=== PATIENT | male | born 1995 | race African-American/Black ===

== ENCOUNTER 2017-02-22 16:50 | Emergency (ER) | payer MEDICAID ==
[~2017-02-22] VITALS: Ht 170.2 cm; Wt 60.0 kg
[2017-02-22] MEDS ORDERED: AMOXICILLIN/POTASSIUM CLAVULANATE 875/125MG TAB PO ONE (18:45)
[2017-02-22] MEDS ORDERED: IBUPROFEN 600MG TABLET PO ONE (18:45)
[2017-02-22 19:07] VITALS: BP 127/63
== END 2017-02-22 19:33 | disposition home or self-care (01) ==
LOC: ER 18:33
DX: R51 Headache (principal); J32.8 Other chronic sinusitis
CPT/HCPCS: 99283

== ENCOUNTER 2019-05-28 10:26 | Emergency (ER) | payer MEDICAID, OTHER ==
[~2019-05-28] VITALS: Ht 172.7 cm; Wt 57.0 kg
[2019-05-28] MEDS ORDERED: ACETAMINOPHEN 650MG/20.3ML UDC PO ONE (11:15)
[2019-05-28 11:29] VITALS: BP 110/62
== END 2019-05-28 11:24 | disposition home or self-care (01) ==
LOC: ER 11:11
DX: J01.90 Acute sinusitis, unspecified (principal); J30.89 Other allergic rhinitis; F12.10 Cannabis abuse, uncomplicated; F17.210 Nicotine dependence, cigarettes, uncomplicated; Z71.6 Tobacco abuse counseling
CPT/HCPCS: 99282; 99406

== ENCOUNTER 2019-11-14 20:58 | Emergency (ER) | payer OTHER ==
[~2019-11-14] VITALS: Ht 172.7 cm; Wt 62.0 kg
[2019-11-14] MEDS ORDERED: IBUPROFEN 600MG TABLET PO ONE (23:00)
[2019-11-15 00:09] VITALS: BP 129/76
== END 2019-11-15 00:10 | disposition home or self-care (01) ==
LOC: ER 20:58
DX: M79.645 Pain in left finger(s) (principal); F12.10 Cannabis abuse, uncomplicated
CPT/HCPCS: 73130; 99283

== ENCOUNTER 2020-04-13 16:53 | Emergency (ER) | payer OTHER ==
[~2020-04-13] VITALS: Ht 172.7 cm; Wt 59.0 kg
[2020-04-13 17:13] VITALS: BP 116/67
== END 2020-04-13 18:25 | disposition home or self-care (01) ==
LOC: ER 16:53
DX: R07.89 Other chest pain (principal); F12.10 Cannabis abuse, uncomplicated; Z98.890 Other specified postprocedural states
CPT/HCPCS: 71046; 93005; 99283

== ENCOUNTER 2022-04-30 09:12 | Emergency (ER) | payer MEDICAID, OTHER ==
[~2022-04-30] VITALS: Ht 175.3 cm; Wt 60.0 kg
[2022-04-30 09:18] VITALS: BP 127/79
[2022-04-30] MEDS ORDERED: PSEU-224 MT (09:57)
== END 2022-04-30 11:10 | disposition home or self-care (01) ==
LOC: ER 09:12
DX: J01.90 Acute sinusitis, unspecified (principal); F12.10 Cannabis abuse, uncomplicated
CPT/HCPCS: 99282

== ENCOUNTER 2023-11-28 20:09 | Emergency (ER) | payer OTHER ==
[~2023-11-28] VITALS: Ht 172.7 cm; Wt 62.0 kg
[~2023-11-28 20:09] MED LIST: PSEU-224 MT
[2023-11-28 20:33] VITALS: O2SAT 100
[2023-11-28 20:59] LABS: BASOPHILS % 1.3 % (0.0-2.0); EOSINOPHILS % 8.6 % (0.0-5.0); HEMOGLOBIN. 13.9 g/dL (14.0-18.0); LYMPHOCYTES % 33.3 % (20.0-50.0); MEAN CORPUSCULAR HGB CONC 33.1 g/dL (31.0-37.0); MEAN CORPUSCULAR VOLUME 84.8 fL (80.0-94.0); MEAN PLATELET VOLUME 9.1 fl (7.4-10.4); MONOCYTES % 9.2 % (2.0-8.0); NEUTROPHILS % 47.6 % (40.0-76.0); PLATELET 212 x1000/uL (130-400); RED BLOOD CELL COUNT 4.96 mill/uL (4.7-6.1); RED CELL DISTRIBUTION WIDTH 13.7 % (11.6-14.6); WHITE BLOOD COUNT 5.4 x1000/uL (4.5-11.0)
[2023-11-28 21:07] LABS: CHLORIDE 106 mEq/L (98-107); POTASSIUM 3.6 mEq/L (3.5-5.1); SODIUM 139 mEq/L (136-145)
[2023-11-28 21:08] LABS: CALCIUM 8.9 mg/dL (8.7-10.4); CARBON DIOXIDE 28 mEq/L (21-32)
[2023-11-28 21:13] LABS: CREATININE 1.2 mg/dL (0.6-1.3); GLUCOSE 94 mg/dL (70-105); UREA NITROGEN BLOOD 12 mg/dL (9-23)
[2023-11-28 21:15] LABS: ALANINE AMINOTRANSFERASE 17 IU/L (10-49); ALBUMIN 4.5 g/dL (3.2-4.8); ASPARTATE AMINOTRANSFERASE 23 IU/L (<34); BILIRUBIN DIRECT 0.1 mg/dL (<=3.0); BILIRUBIN TOTAL 0.4 mg/dL (0.1-1.0); PROTEIN TOTAL 7.2 g/dL (6.0-8.3)
[2023-11-28] MEDS ORDERED: FAMOTIDINE 20MG TABLET PO ONE (22:15)
[2023-11-28] MEDS ORDERED: FAMO20TA8 MT (22:33)
[2023-11-28] MEDS: FAMOTIDINE 20MG TABLET PO NR (23:04)
[2023-11-28 23:16] VITALS: BP 126/80; PULSE 67; RESP 20; TEMP 98.4
== END 2023-11-28 23:18 | disposition home or self-care (01) ==
LOC: ER 20:09
DX: R10.84 Generalized abdominal pain (principal); F12.90 Cannabis use, unspecified, uncomplicated
CPT/HCPCS: 36415; 80048; 80076; 85025; 99283

== ENCOUNTER 2024-03-11 06:49 | Emergency (ER) | payer OTHER ==
[~2024-03-11] VITALS: Ht 172.7 cm; Wt 61.9 kg
[~2024-03-11 06:49] MED LIST changes: +FAMO20TA8 MT
[2024-03-11 07:09] VITALS: O2SAT 100
[2024-03-11] MEDS ORDERED: IBUP-2029 MT (08:53)
[2024-03-11] MEDS: IBUPROFEN 600MG TABLET PO ONE (08:56)
[2024-03-11 09:10] VITALS: BP 126/59; PULSE 85; RESP 17; TEMP 36.66960; O2SAT 100
== END 2024-03-11 09:10 | disposition home or self-care (01) ==
LOC: ER 07:05
DX: B34.9 Viral infection, unspecified (principal); Z20.822 Contact with and (suspected) exposure to COVID-19
CPT/HCPCS: 87426; 99283

== ENCOUNTER 2024-03-20 08:26 | Emergency (ER) | payer OTHER ==
[~2024-03-20] VITALS: Ht 172.7 cm; Wt 63.0 kg
[~2024-03-20 08:26] MED LIST changes: +IBUP-2029 MT
[2024-03-20 08:38] VITALS: O2SAT 99
[2024-03-20 08:39] VITALS: BP 116/71; PULSE 104; RESP 15; TEMP 98.3; O2SAT 100
[2024-03-20] MEDS: METHOCARBAMOL 500MG TABLET PO ONE (09:56)
[2024-03-20] MEDS ORDERED: METH-773 MT (10:59)
[2024-03-20] MEDS ORDERED: CLOT15CR27 TP (10:59)
[2024-03-20 11:56] LABS: BASOPHILS % 1.3 % (0.0-2.0); EOSINOPHILS % 3.5 % (0.0-5.0); HEMATOCRIT. 46.1 % (42.0-52.0); HEMOGLOBIN. 14.9 g/dL (14.0-18.0); LYMPHOCYTES % 19.7 % (20.0-50.0); MEAN CORPUSCULAR HEMOGLOBIN 27.5 pg (28.0-32.0); MEAN CORPUSCULAR HGB CONC 32.3 g/dL (31.0-37.0); MEAN CORPUSCULAR VOLUME 85.1 fL (80.0-94.0); MONOCYTES % 7.5 % (2.0-8.0); PLATELET 257 x1000/uL (130-400); RED BLOOD CELL COUNT 5.42 mill/uL (4.7-6.1); WHITE BLOOD COUNT 5.1 x1000/uL (4.5-11.0)
[2024-03-20 12:05] LABS: CHLORIDE 105 mEq/L (98-107); POTASSIUM 3.9 mEq/L (3.5-5.1); SODIUM 138 mEq/L (136-145)
[2024-03-20 12:06] LABS: CALCIUM 9.9 mg/dL (8.7-10.4); CARBON DIOXIDE 28 mEq/L (21-32)
[2024-03-20 12:11] LABS: GLUCOSE 93 mg/dL (70-105); UREA NITROGEN BLOOD 13 mg/dL (9-23)
[2024-03-20 14:30] LABS: CLARITY URINE CLEAR (CLEAR); COLOR URINE YELLOW (YELLOW); GLUCOSE URINE NEGATIVE (NEGATIVE); KETONES URINE NEGATIVE (NEGATIVE); LEUKOCYTE ESTERASE URINE NEGATIVE (NEGATIVE); NITRITE URINE NEGATIVE (NEGATIVE); OCCULT BLOOD URINE NEGATIVE (NEGATIVE); PH URINE 5.5 (4.5-8.0); PROTEIN URINE NEGATIVE (NEGATIVE); SPECIFIC GRAVITY URINE 1.014 (1.005-1.030); UROBILINOGEN URINE 0.2 E.U./dL (0.2-1.0)
== END 2024-03-20 15:10 | disposition home or self-care (01) ==
LOC: ER 08:26
DX: M54.2 Cervicalgia (principal); M54.12 Radiculopathy, cervical region; B35.6 Tinea cruris; R21 Rash and other nonspecific skin eruption; F41.9 Anxiety disorder, unspecified; F12.10 Cannabis abuse, uncomplicated; Z79.899 Other long term (current) drug therapy
CPT/HCPCS: 36415; 72040; 80048; 81003; 85025; 99284

== ENCOUNTER 2024-04-13 05:58 | Emergency (ER) | payer OTHER ==
[~2024-04-13] VITALS: Ht 172.7 cm; Wt 63.0 kg
[~2024-04-13 05:58] MED LIST changes: +CLOT15CR27 TP; +METH-773 MT
[2024-04-13 06:05] VITALS: O2SAT 100
[2024-04-13] MEDS: KETOROLAC 30MG/ML VIAL IV STA (06:46)
[2024-04-13] MEDS: SODIUM CHLORIDE 0.9% 1,000 ML IV ONE (06:46)
[2024-04-13] MEDS: METOCLOPRAMIDE HCL 10MG/2ML VIAL IV ONE (06:46)
[2024-04-13 07:51] VITALS: BP 130/80; PULSE 76; RESP 16; TEMP 36.83628; O2SAT 100
[2024-04-13] MEDS ORDERED: IBUP-2028 PO (07:59)
== END 2024-04-13 11:08 | disposition home or self-care (01) ==
LOC: ER 05:58
DX: R51.9 Headache, unspecified (principal); F12.10 Cannabis abuse, uncomplicated
CPT/HCPCS: 96361; 96374; 96375; 99284; J1885; J2765; J7030; Z7610 ×4

== ENCOUNTER 2024-04-26 08:57 | Emergency (ER) | payer OTHER ==
[~2024-04-26] VITALS: Ht 172.7 cm; Wt 62.0 kg
[~2024-04-26 08:57] MED LIST changes: +IBUP-2028 PO
[2024-04-26 09:00] VITALS: O2SAT 100
[2024-04-26 09:12] VITALS: BP 109/70; PULSE 74; RESP 16; TEMP 99; O2SAT 100
[2024-04-26] MEDS: KETOROLAC 30MG/ML VIAL IM ONE (11:00)
[2024-04-26] MEDS: METOCLOPRAMIDE HCL 10MG TABLET PO ONE (11:42)
[2024-04-26] MEDS: DIPHENHYDRAMINE 50MG CAPSULE PO ONE (11:42)
[2024-04-26] MEDS ORDERED: ASPI-740 PO (13:14)
== END 2024-04-26 13:37 | disposition home or self-care (01) ==
LOC: ER 08:57
DX: G43.909 Migraine, unspecified, not intractable, without status migrainosus (principal); F12.90 Cannabis use, unspecified, uncomplicated; Z98.890 Other specified postprocedural states
CPT/HCPCS: 70450; 99284; Q0163; J8597; Z7610; J1885

== ENCOUNTER 2024-05-04 11:21 | Emergency (ER) | payer OTHER ==
[~2024-05-04] VITALS: Ht 172.7 cm; Wt 63.0 kg
[~2024-05-04 11:21] MED LIST changes: +ASPI-740 PO
[2024-05-04 11:26] VITALS: BP 119/45; PULSE 85; RESP 16; TEMP 98.6; O2SAT 100; O2SAT 98
[2024-05-04] MEDS ORDERED: PRED5TAB48 MT (13:21)
[2024-05-04] MEDS ORDERED: ONDA-239 PO (13:21)
[2024-05-04] MEDS: ONDANSETRON 4MG ODT PO ONE (13:41)
[2024-05-04] MEDS: KETOROLAC 30MG/ML VIAL IM ONE (13:41)
== END 2024-05-04 13:43 | disposition home or self-care (01) ==
LOC: ER 11:21
DX: R42 Dizziness and giddiness (principal); F12.90 Cannabis use, unspecified, uncomplicated; Z79.899 Other long term (current) drug therapy
CPT/HCPCS: 99283

== ENCOUNTER 2024-05-21 14:52 | Emergency (ER) | payer OTHER ==
[~2024-05-21 14:52] MED LIST changes: +ONDA-239 PO; +PRED5TAB48 MT
[2024-05-21 14:55] VITALS: PULSE 87; RESP 16; O2SAT 97
== END 2024-05-21 18:53 | disposition left against medical advice (07) ==
LOC: ER 14:56
DX: R51.9 Headache, unspecified (principal); Z53.21 Procedure and treatment not carried out due to patient leaving prior to being seen by health care provider